=== PATIENT | female | born 1980 | race Two or more races ===

== ENCOUNTER 2024-12-31 09:03 | Outpatient (RCR) | payer MEDICAID, SELFPAY ==
[2024-12-07 10:25] LABS: HCG Qualitative,Urine Negative
--- NOTE | 2024-12-31 10:00 | XR_ITS ---
Examination: ANNA, hepatobiliary radioisotope scan Date and time of exam: December 31, 2024 0952 hours INDICATIONS: Upper abdominal pain heartburn beginning June 2023 Technique: 5.7 mCi of 99M Hepatolite administered. Serial imaging then obtained from immediate through 60 minutes. . Findings: Radioisotope activity within the liver is reasonably homogenous. Common bile duct small bowel activity noted Impression: No gallbladder activity consistent with patient's history cholecystectomy No common bile duct obstruction
[2024-12-31 10:01] LABS: HCG Qualitative,Urine Negative
== END 2025-01-05 23:59 | disposition home or self-care (01) ==
LOC: SNUC 09:03
PROVIDERS: PCP Family Medicine; Referring Provider Family Medicine; Visit Provider Family Medicine
DX: R10.13 Epigastric pain (principal); Z32.00 Encounter for pregnancy test, result unknown
CPT/HCPCS: 78227; 81025; A9537